=== PATIENT | male | born 1970 | race Caucasian/White ===

== ENCOUNTER 2016-09-23 18:21 | Emergency (ER) | payer OTHER ==
[2016-09-23 21:18] VITALS: BP 133/74
== END 2016-09-23 21:18 | disposition home or self-care (01) ==
LOC: ED 18:21
DX: S01.419A Laceration without foreign body of unspecified cheek and temporomandibular area, initial encounter (principal); W22.8XXA Striking against or struck by other objects, initial encounter; Y93.89 Activity, other specified; Y92.89 Other specified places as the place of occurrence of the external cause; Y99.8 Other external cause status
CPT/HCPCS: 90715; J2001

== ENCOUNTER 2016-09-28 07:34 | Emergency (ER) | payer OTHER ==
[~2016-09-28] VITALS: Ht 172.7 cm; Wt 97.1 kg
[2016-09-28 08:08] VITALS: BP 143/90
== END 2016-09-28 08:09 | disposition home or self-care (01) ==
LOC: ED 07:34
DX: S01.81XD Laceration without foreign body of other part of head, subsequent encounter (principal); X58.XXXD Exposure to other specified factors, subsequent encounter; Y99.8 Other external cause status; Y92.89 Other specified places as the place of occurrence of the external cause